=== PATIENT | male | born 1990 | race Caucasian/White ===

== ENCOUNTER 2016-10-04 21:05 | Emergency (ER) | payer OTHER ==
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
[~2016-10-04 21:05] MED LIST: NAPROXEN PO; NO MEDICATIONS; PEPCID AC20 MG PO; PHENERGAN25 M1 PO; PREVACID PO; REGLAN10 MG PO; TYLENOL #3 PO
== END 2016-10-05 00:40 | disposition home or self-care (01) ==
LOC: CED 21:05
DX: S93.601A Unspecified sprain of right foot, initial encounter (principal); F17.210 Nicotine dependence, cigarettes, uncomplicated; Z23 Encounter for immunization; Z79.899 Other long term (current) drug therapy; V89.2XXA Person injured in unspecified motor-vehicle accident, traffic, initial encounter
CPT/HCPCS: 29540; 73610; 73630; 90471; 90715; 99284